=== PATIENT | female | born 1995 | race African-American/Black ===

== ENCOUNTER 2016-09-24 18:55 | Emergency (ER) | payer SELFPAY ==
[~2016-09-24] VITALS: Ht 152.4 cm; Wt 55.0 kg
[~2016-09-24 18:55] MED LIST: Z.0.UNKNOWN
[2016-09-24 18:56] VITALS: BP 136/78; PULSE 66; RESP 16; TEMP 98; O2SAT 100
--- NOTE | 2016-09-24 19:43 | PD ---
HPI Chief Complaint: Respiratory Symptoms Time Seen by Provider: 19:25 Travel History International Travel<30 days: No Contact w/Intl Traveler<30days: No Traveled to known affect area: No History of Present Illness HPI Patient 20-year-old female presents emergency department for pain in her anterior most chest. Patient states she felt a pop last night when she was stretching in bed trying to crack her back. She states she felt a pop and then this morning she was having more significant pain. Patient states she went to work today and was sent home because she bent over and the pain got fairly worse. She states not painful when she sits still. She denies any shortness of breath or congestive symptoms to me. Denies any fevers nausea vomiting. PFSH Past Medical History Asthma: Yes Depression: Yes Cancer: No Cardiovascular Problems: No Diminished Hearing: No Endocrine: No Genitourinary: No Immune Disorder: No Musculoskeletal: No Neurologic: No Psychiatric: No Reproductive: No Respiratory: Yes (ASTHMA) Immunizations Current: Yes Tetanus Vaccination: > 5 Years Influenza Vaccination: No ?: Not LMP: 09/15/16 Past Surgical History Surgical History: No Previous Surgery Other Surgery: No Social History Alcohol Use: No Tobacco Use: No Substance Use: No (PATIENT DENIES) Allergies-Medications (Allergen,Severity, Reaction): Coded Allergies: No Known Allergies (Unverified , 09/24/16) Reported Meds & Prescriptions Reported Meds & Active Scripts Active Ibuprofen 600 Mg Tab 600 Mg PO Q6H PRN Flexeril (Cyclobenzaprine HCl) 10 Mg Tab 10 Mg PO TID Review of Systems Except as stated in HPI: all other systems reviewed are Neg Physical Exam Narrative GENERAL: Well-nourished, well-developed patient. In no apparent distress. SKIN: Focused skin assessment warm/dry. HEAD: Normocephalic. EYES: No scleral icterus. No injection or drainage. NECK: Supple, trachea midline. No JVD or lymphadenopathy. CARDIOVASCULAR: Regular rate and rhythm without murmurs, gallops, or rubs. Patient has tenderness to the anterior chest. When she exerts her pectoral muscles against resistance this exacerbates her pain. This is bilateral. Pulses motor and sensory intact distally in all 4 extremity's, 2+ bilateral equal pulses in all 4 extremity. RESPIRATORY: Breath sounds equal bilaterally. No accessory muscle use. GASTROINTESTINAL: Abdomen soft, non-tender, nondistended. MUSCULOSKELETAL: No cyanosis, or edema. BACK: Nontender without obvious deformity. No CVA tenderness. Data Data Last Documented VS Vital Signs Date Time Temp Pulse Resp B/P Pulse Ox O2 Delivery O2 Flow Rate FiO2 09/24/16 18:56 98.0 66 16 136/78 100 Room Air Orders Electrocardiogram (09/24/16 ) Chest, Pa & Lat (09/24/16 ) Ibuprofen (Motrin) (09/24/16 19:45) MDM Medical Decision Making Medical Screen Exam Complete: Yes Emergency Medical Condition: Yes Interpretation(s) EKG shows normal sinus rhythm normal axis normal R-wave progression. No concerning ST-T changes. Intervals within normal limits. This normal EKG. Differential Diagnosis Costochondritis, muscular skeletal pain, cardiac pain very unlikely, lung etiology highly unlikely. Narrative Course Patient roomed in the emergency department, her physical exam is highly consistent with muscular skeletal pain. Patient's chest x-ray and EKG are within normal limits. Discussed with the patient symptomatically management for her chest wall pain and return to ED criteria. Will be prescribed Flexeril and discussed no operating heavy machinery no driving while on this medicine. Discussed need for follow-up the primary care provider. Diagnosis Primary Impression: Chest wall pain Med/Other Pt SpecificInfo: Prescription(s) given Scripts Ibuprofen 600 Mg [id number] Mg PO Q6H PRN (Pain/Inflammation) #30 TAB Ref 0 Prov:Mohamud Zapata MD 09/24/16 Cyclobenzaprine (Flexeril)10 Mg Tab10 Mg PO TID #30 TAB Ref 0 Prov:Mohamud Zapata MD 09/24/16 Disposition: 01 DISCHARGE HOME Condition: Stable Mohamud Zapata MD Sep 24, 2016 19:43
[2016-09-24] MEDS ORDERED: IBUPROFEN 600 MG TAB PO ONE (19:45)
--- NOTE | 2016-09-24 20:10 | RADRPT ---
EXAM DATE/TIME: 09/24/2016 20:07 [facility] COMPARISON: No previous studies available for comparison. INDICATIONS : Right side chest pain after stretching last night. MEDICAL HISTORY : None. SURGICAL HISTORY : None. ENCOUNTER: Initial ACUITY: 2 days PAIN SCORE: 6/10 LOCATION: Bilateral chest FINDINGS: PA and lateral views of the chest demonstrate the lungs to be symmetrically aerated without evidence of mass, infiltrate or effusion. The cardiomediastinal contours are unremarkable. Osseous structure s are intact. CONCLUSION: No acute disease. James Kong Jr., MD on September 24, 2016 at 20:08 Board Certified Radiologist. This report was verified electronically.
[2016-09-24] MEDS ORDERED: CYCL1TAB29 PO (21:01)
[2016-09-24] MEDS ORDERED: IBUP-232 PO (21:01)
--- NOTE | 2016-09-25 13:44 | EKG ---
Date Performed: 09/24/2016 Time Performed: 19:39:21 PTAGE: 20 years EKG: Sinus rhythm NORMAL ECG NO PREVIOUS TRACING DOCTOR: Arnoldo Dickerson Interpretating Date/Time 09/25/2016 13:41:20
== END 2016-09-24 21:09 | disposition home or self-care (01) ==
LOC: NEPD 18:55
DX: R07.89 Other chest pain (principal); J45.909 Unspecified asthma, uncomplicated; F32.9 Major depressive disorder, single episode, unspecified
CPT/HCPCS: 71020; 93005